=== PATIENT | male | born 1965 | race Caucasian/White ===

== ENCOUNTER 2019-12-21 14:06 | Outpatient (CLI) | payer OTHER, SELFPAY ==
--- NOTE | 2019-12-21 14:18 | USCV_ITS ---
Yoshi Grace Age: 54 Gender: M : 1965 Exam Date: 12/21/2019 14:43 Ordering Phys: Pratik Negrete APN Technologist: ANA SILVA [place] [facility] [place]: RIGHT LEG PAIN PROCEDURES: Venous duplex imaging was performed in only the right lower extremity. The following venous structures were evaluated: common femoral vein, profunda vein, proximal portion of the greater saphenous vein, superficial femoral vein, and the popliteal vein. In addition, the posterior tibial and peroneal trunk were evaluated. Serial compression, augmentation maneuvers, and spectral Doppler flow evaluation were performed. FINDINGS: Normal 2-D Doppler and augmentation and compressibility throughout the lower extremity venous structures. Additional imaging through the proximal calf veins also reveals no thrombus. Limited evaluation of the greater saphenous vein is patent with no thrombus.. CONCLUSIONS No evidence of DVT in the above-mentioned identifiable veins. Dr Katherine Rich MD [facility] (Electronically Signed) Final Date: 21 Dec 2019 17:04 S
== END 2019-12-21 14:07 | disposition home or self-care (01) ==
LOC: RAD 14:13
PROVIDERS: Family Provider Nurse Practitioner Family; Visit Provider Nurse Practitioner Family
DX: M79.604 Pain in right leg (principal)
CPT/HCPCS: 93971

== ENCOUNTER 2020-01-31 | Outpatient (RCR) | payer OTHER, SELFPAY | END 2020-02-08 23:00 | disposition home or self-care (01) | LOC: SPT | PROVIDERS: Family Provider Nurse Practitioner Family; Referring Provider Orthopaedic Surgery; Visit Provider Orthopaedic Surgery | DX: M25.561 Pain in right knee (principal); M25.461 Effusion, right knee | CPT/HCPCS: 97140; 97161 ==

== ENCOUNTER 2022-08-27 14:04 | Outpatient (CLI) | payer SELFPAY ==
--- NOTE | 2022-08-27 14:22 | XR_ITS ---
WS: [id number] Exam: XR chest 2V* [id number] Date/Time of Exam: 08/27/2022 2:25 PM Reason For Exam: ORTHOPNEA No priors. The lungs are fully inflated. No consolidating infiltrates are seen. Cardiomediastinal silhouette is unremarkable. No pleural effusions. Regional bony elements are intact. XR/XR chest 2V* [id number] IMPRESSION: 1. No acute cardiopulmonary finding.
== END 2022-08-27 14:05 | disposition home or self-care (01) ==
LOC: RAD 14:09
PROVIDERS: PCP Nurse Practitioner Family; Visit Provider Nurse Practitioner Family
DX: R06.01 Orthopnea (principal)
CPT/HCPCS: 71046

== ENCOUNTER 2023-08-12 07:53 | Day surgery (SDC) | payer SELFPAY ==
[2023-08-12 08:10] VITALS: BP 164/99; PULSE 62; RESP 18; TEMP 36.4; O2SAT 96; BMI 46.6
[2023-08-12] MEDS: sodium chloride 0.9% 1,000 ML 30 ML IV (08:18)
--- NOTE | 2023-08-12 08:31 | ANES.PREANE2 ---
Pre-Anesthetic Assessment Height/Weight: Height 1.68 m Weight 131.088 kg Temp Pulse Resp BP Pulse Ox O2 Del Method 97.5 F L 62 18 164/99 96 Room Air 08/12/23 08:10 08/12/23 08:10 08/12/23 08:10 08/12/23 08:10 08/12/23 08:10 08/12/23 08:10 Preop Diagnosis: dysphagia Operation Date: 08/12/23 08:45 Proposed Procedures p EGD w/balloon dialation R13.10,K21.9,23858(Not Applicable) - Dov Coello, DO Was Beta Malcom taken within 24 hours: Yes Was Clonidine taken within 24 hours: N/A Last intake: Intake Last Liquid Date 08/11/23 Last Liquid Time 23:00 Last Solid Date 08/11/23 Last Solid Time 21:00 Social No alcohol and No tobacco Exam alert and oriented x 3 Airway Submandibular: within normal limits Cervical ROM: within normal limits Mallampati: Class III Dentition: false and partials History/ROS No significant history except as noted Pulmonary Asthma CV/HEM Stable Angina (Tums improves) and Hypertension None reported Hepatic None reported GI Gastroesophageal Reflux Disease Metabolic Morbid Obesity Musc/skel None reported restless leg Neuropsych None reported Anesthetic Plan ASA status: 3 Anesthesia: MAC Risk of > 500 ml blood loss (7ml/kg in children): No Medications/Allergies Home Medications Medication Instructions Recorded Confirmed Last Taken Type albuterol sulfate 90 mcg/actuation 1 inh inhalation PRN PRN Wheezing 07/12/23 08/12/23 08/11/23 History aerosol inhaler meloxicam 15 mg tablet 15 mg PO DAILY 07/12/23 08/12/23 08/11/23 History metoprolol succinate 50 mg 50 mg PO DAILY 07/12/23 08/12/23 08/11/23 History tablet,extended release 24 hr ropinirole 3 mg tablet 3 mg PO DAILY 07/12/23 08/12/23 08/11/23 History tramadol 50 mg tablet 50 mg PO PRN PRN Pain 07/12/23 08/12/23 08/11/23 History verapamil 240 mg tablet,extended 240 mg PO DAILY 07/12/23 08/12/23 08/11/23 History release Allergies Allergy/AdvReac Type Severity Reaction Status Date / Time No Known Allergies Allergy Verified 08/12/23 08:09 Current Medications Generic Name Dose Route Start Last Admin Trade Name Freq PRN Reason Stop Dose Admin Sodium Chloride 1,000 mls @ 30 mls/hr 08/12/23 08:00 08/12/23 08:18 Sodium Chloride 0.9% IV 08/13/23 07:59 30 mls/hr .Q24H MICHEL Administration Data Anesthesia Cardiac Studies: No Data to Display
--- NOTE | 2023-08-12 08:33 | W.PM.OPSUD ---
Surgery/Procedure H&P Update DATE OF PROCEDURE: August 12, 2023 DATE H&P PERFORMED: 08/04/23 H&P UPDATE INFORMATION: I have reviewed H&P completed within last 30 days, I have examined patient prior to procedure and No changes to prior documentation PLANNED PROCEDURE: Operation Date: 08/12/23 08:45 Proposed Procedures p EGD w/balloon dialation R13.10,K21.9,73827(Not Applicable) - Dov Coello DO
[2023-08-12 09:20] VITALS: BP 164/103; PULSE 80; RESP 20; TEMP 36.4; O2SAT 92
[2023-08-12 09:25] VITALS: BP 157/90; PULSE 85; RESP 65; O2SAT 95
[2023-08-12 09:45] VITALS: BP 147/102; PULSE 63; RESP 63; O2SAT 97
== END 2023-08-12 10:00 | disposition home or self-care (01) ==
PROVIDERS: PCP Nurse Practitioner Family; Visit Provider Surgery
DX: R13.10 Dysphagia, unspecified (principal); K21.9 Gastro-esophageal reflux disease without esophagitis; K22.2 Esophageal obstruction; K29.50 Unspecified chronic gastritis without bleeding; J45.909 Unspecified asthma, uncomplicated; E66.01 Morbid (severe) obesity due to excess calories; Z68.42 Body mass index [BMI] 45.0-49.9, adult
CPT/HCPCS: 43239; 43249; 88305; 88342; J2405; J2704; J7030